=== PATIENT | female | born 1985 | race Caucasian/White ===

== ENCOUNTER 2017-06-18 15:49 | Emergency (ER) | payer OTHER ==
[2017-06-18] MEDS: HYDROCODONE/APAP (5/325) TAB PO (18:03)
== END 2017-06-18 19:45 | disposition home or self-care (01) ==
LOC: FTE 15:49
DX: M54.2 Cervicalgia (principal); J45.909 Unspecified asthma, uncomplicated; Z87.891 Personal history of nicotine dependence
CPT/HCPCS: 72040; 81025; 99283-25

== ENCOUNTER 2017-11-18 15:46 | Emergency (ER) | payer OTHER ==
[2017-11-18] MEDS: predniSONE 20 MG TAB PO (16:13)
[2017-11-18] MEDS: IPRATROPIUM (NEB) 0.5 MG/2.5 ML AMP NEB (16:21)
[2017-11-18] MEDS: ALBUTEROL 0.083% (NEB) 2.5 MG/3 ML AMP NEB (16:21)
== END 2017-11-18 18:02 | disposition home or self-care (01) ==
LOC: E/R 15:46
DX: J45.901 Unspecified asthma with (acute) exacerbation (principal); F17.210 Nicotine dependence, cigarettes, uncomplicated
CPT/HCPCS: 81025; 93005; 94664; 99284-25

== ENCOUNTER 2018-03-03 17:42 | Emergency (ER) | payer OTHER ==
[2018-03-03] MEDS: ALBUTEROL 0.083% (NEB) 2.5 MG/3 ML AMP HHN (21:08)
[2018-03-03] MEDS: LORAZEPAM 0.5 MG TAB PO (21:09)
== END 2018-03-03 21:43 | disposition home or self-care (01) ==
LOC: FTE 17:42
DX: J45.901 Unspecified asthma with (acute) exacerbation (principal); F41.9 Anxiety disorder, unspecified; R06.02 Shortness of breath; Z56.3 Stressful work schedule; Z87.891 Personal history of nicotine dependence
CPT/HCPCS: 93005; 94664; 99283-25